=== PATIENT | male | born 1985 | race Caucasian/White ===

== ENCOUNTER 2021-03-20 17:42 | Emergency (ER) | payer OTHER | END 2021-03-20 18:59 | disposition home or self-care (01) | LOC: JVIRT 17:42 | DX: R51.9 Headache, unspecified (principal); Z20.822 Contact with and (suspected) exposure to COVID-19 | CPT/HCPCS: G2251-GT ==

== ENCOUNTER 2021-12-05 05:28 | Emergency (ER) | payer OTHER ==
[2021-12-05 07:41] VITALS: BP 121/51; PULSE 69; TEMP 98.2; BMI 25.3
[2021-12-05] MEDS ORDERED: IBUPROFEN 600 MG TABLET (FP) PO ONE (08:45)
== END 2021-12-05 09:52 | disposition home or self-care (01) ==
LOC: JER 05:28
DX: M25.521 Pain in right elbow (principal); S51.011A Laceration without foreign body of right elbow, initial encounter; W00.0XXA Fall on same level due to ice and snow, initial encounter
CPT/HCPCS: 71046-TC-FY; 71101-TC-RT-FY; 73070-TC-RT-FY; 99284-25

== ENCOUNTER 2022-02-03 07:21 | Emergency (ER) | payer OTHER ==
[2022-02-03 07:32] VITALS: BP 138/75; PULSE 73; TEMP 98; BMI 25.8
[2022-02-03] MEDS ORDERED: KETOROLAC TROMETHAMINE 30 MG/1 ML VIAL IM ONE (08:07)
[2022-02-03] MEDS ORDERED: KETOROLAC TROMETHAMINE 30 MG/1 ML VIAL ONE (08:20)
== END 2022-02-03 08:26 | disposition home or self-care (01) ==
LOC: JERFT 07:21 → JER 07:21 → JERFT 08:26
PROC: 3E023GC Introduction of Other Therapeutic Substance into Muscle, Percutaneous Approach (ICD-10-PCS; principal; 2022-02-03)
DX: M54.50 Low back pain, unspecified (principal)
CPT/HCPCS: 99284-25

== ENCOUNTER 2022-02-09 09:24 | Emergency (ER) | payer OTHER ==
[2022-02-09 09:41] VITALS: BP 135/76; PULSE 87; TEMP 98; BMI 27.3
[2022-02-09] MEDS ORDERED: ACETAMINOPHEN 500 MG TABLET (FP) PO ONE (10:41)
[2022-02-09] MEDS ORDERED: ACETAMINOPHEN 500 MG TABLET (FP) ONE (10:53)
[2022-02-09] MEDS ORDERED: KETOROLAC TROMETHAMINE 30 MG/1 ML VIAL IM ONE (11:57)
[2022-02-09] MEDS ORDERED: KETOROLAC TROMETHAMINE 30 MG/1 ML VIAL ONE (12:00)
== END 2022-02-09 13:04 | disposition home or self-care (01) ==
LOC: JERFT 09:24
PROC: 3E0233Z Introduction of Anti-inflammatory into Muscle, Percutaneous Approach (ICD-10-PCS; principal; 2022-02-09)
DX: M54.50 Low back pain, unspecified (principal)
CPT/HCPCS: 72131-TC; 99284-25

== ENCOUNTER 2023-07-04 11:53 | Emergency (ER) | payer OTHER ==
[2023-07-04 12:05] VITALS: BP 125/70; PULSE 66; RESP 19; TEMP 98.2; BMI 25.5
[2023-07-04] MEDS ORDERED: KETOROLAC TROMETHAMINE 30 MG/1 ML VIAL IM ONE (12:55)
[2023-07-04] MEDS ORDERED: CYCLOBENZAPRINE HCL 10 MG TABLET (FP) PO ONE (12:55)
[2023-07-04] MEDS ORDERED: CYCLOBENZAPRINE HCL 10 MG TABLET (FP) ONE (13:07)
[2023-07-04] MEDS ORDERED: KETOROLAC TROMETHAMINE 15 MG/ML VIAL ONE (13:07)
== END 2023-07-04 18:02 | disposition home or self-care (01) ==
LOC: JERFT 11:53
PROC: 3E0233Z Introduction of Anti-inflammatory into Muscle, Percutaneous Approach (ICD-10-PCS; principal; 2023-07-04)
DX: R10.12 Left upper quadrant pain (principal); R07.81 Pleurodynia; X50.0XXA Overexertion from strenuous movement or load, initial encounter; X50.1XXA Overexertion from prolonged static or awkward postures, initial encounter
CPT/HCPCS: 76700-TC; 99284-25

== ENCOUNTER 2023-07-07 12:48 | Emergency (ER) | payer OTHER ==
[2023-07-07 13:04] VITALS: BMI 25.8
[2023-07-07] MEDS ORDERED: KETOROLAC TROMETHAMINE 30 MG/1 ML VIAL IM ONE (13:38)
[2023-07-07] MEDS ORDERED: KETOROLAC TROMETHAMINE 15 MG/ML VIAL ONE (13:51)
[2023-07-07 14:19] LABS: BASO % 0.4 % (0-2.0); EOS % 4.2 % (0-4.5); HEMATOCRIT 46.8 % (35.4-49); HEMOGLOBIN 16.1 GM/dL (11.7-16.9); MCH 29.9 pg (25.7-33.7); MCHC 34.4 g/dl (32.0-35.9); MONO % 9.3 % (3.8-10.2); NEUT % 56.1 % (42.8-82.8); PLATELET COUNT 162 10^3/uL (134-434); RBC 5.38 M/mm3 (4.00-5.60); RDW 14.3 % (11.9-15.9); WHITE BLOOD COUNT 8.1 K/mm3 (4.0-10.0)
[2023-07-07 15:04] LABS: POTASSIUM 4.6 mmol/L (3.5-5.1)
[2023-07-07 15:06] LABS: CALCIUM 8.9 mg/dL (8.5-10.1)
[2023-07-07 15:07] LABS: ALBUMIN 3.9 g/dl (3.4-5.0); BLOOD UREA NITROGEN 22.7 mg/dL (7-18)
[2023-07-07 15:09] LABS: CREATININE 1.4 mg/dL (0.55-1.3)
[2023-07-07 15:11] LABS: BILIRUBIN,TOTAL 0.3 mg/dL (0.2-1); TOT PROT 7.6 g/dl (6.4-8.2)
[2023-07-07] MEDS ORDERED: SODIUM CHLORIDE 0.9% 500 ML INFUS.BAG IV ONE ×2 (16:09→18:43)
[2023-07-07 16:38] LABS: URINE COLOR YELLOW
[2023-07-07 16:39] LABS: PH,URINE 6.5 (5.0-8.0); URINE APPEARANCE CLEAR; URINE BILIRUBIN NEGATIVE (NEGATIVE); URINE GLUCOSE (UA) NEGATIVE (NEGATIVE); URINE KETONE NEGATIVE (NEGATIVE); URINE LEUK ESTERASE NEGATIVE (NEGATIVE); URINE NITRITE NEGATIVE (NEGATIVE); URINE PROTEIN NEGATIVE (NEGATIVE)
[2023-07-07 18:05] LABS: POTASSIUM 5.4 mmol/L (3.5-5.1)
[2023-07-07 18:07] LABS: ALBUMIN 3.8 g/dl (3.4-5.0); BLOOD UREA NITROGEN 21.8 mg/dL (7-18); CALCIUM 8.8 mg/dL (8.5-10.1)
[2023-07-07 18:10] LABS: CREATININE 1.4 mg/dL (0.55-1.3)
[2023-07-07 18:12] LABS: BILIRUBIN,TOTAL 0.3 mg/dL (0.2-1); TOT PROT 6.8 g/dl (6.4-8.2)
[2023-07-07] MEDS ORDERED: ACETAMINOPHEN 500 MG TABLET (FP) PO ONE (20:18)
[2023-07-07] MEDS ORDERED: LIDOCAINE 5% TOPICAL PATCH TP ONE (20:19)
[2023-07-07] MEDS ORDERED: LIDOCAINE 5% TOPICAL PATCH ONE (20:34)
[2023-07-07] MEDS ORDERED: ACETAMINOPHEN 500 MG TABLET (FP) ONE (20:34)
[2023-07-07 21:12] LABS: POTASSIUM 4.6 mmol/L (3.5-5.1)
[2023-07-07 21:14] LABS: BLOOD UREA NITROGEN 21.7 mg/dL (7-18); CALCIUM 8.3 mg/dL (8.5-10.1)
[2023-07-07 21:18] LABS: CREATININE 1.3 mg/dL (0.55-1.3)
[2023-07-07 21:31] VITALS: BP 110/68; PULSE 62; RESP 19; TEMP 97.9
[2023-07-07] MEDS ORDERED: LIDOCAINE PATCH REMOVAL MC SCH (22:00)
== END 2023-07-07 21:31 | disposition home or self-care (01) ==
LOC: JER 12:48
PROC: 3E0233Z Introduction of Anti-inflammatory into Muscle, Percutaneous Approach (ICD-10-PCS; principal; 2023-07-07)
DX: R10.12 Left upper quadrant pain (principal); R25.2 Cramp and spasm; S29.011A Strain of muscle and tendon of front wall of thorax, initial encounter; X50.0XXA Overexertion from strenuous movement or load, initial encounter
CPT/HCPCS: 36415; 71046-TC-FY; 71101-TC-LT-FY; 74177-TC; 80048; 80053; 81003; 85025; 93005; 93010; 99285-25; Q9967

== ENCOUNTER 2024-01-05 23:47 | Emergency (ER) | payer OTHER ==
[2024-01-05 23:53] VITALS: BP 135/73; PULSE 92; RESP 20; TEMP 97.5; BMI 27.3
[2024-01-06] MEDS ORDERED: LIDOCAINE HCL 1%, 10 MG/ML (20ML VIAL) ONE (00:39)
[2024-01-06] MEDS ORDERED: cefTRIAXone SODIUM 1 GM VIAL ONE (00:40)
[2024-01-06 01:19] LABS: PH,URINE 5.5 (5.0-8.0); URINE APPEARANCE CLEAR; URINE BILIRUBIN NEGATIVE (NEGATIVE); URINE COLOR YELLOW; URINE GLUCOSE (UA) NEGATIVE (NEGATIVE); URINE KETONE TRACE (NEGATIVE); URINE LEUK ESTERASE NEGATIVE (NEGATIVE); URINE NITRITE NEGATIVE (NEGATIVE); URINE PROTEIN NEGATIVE (NEGATIVE)
== END 2024-01-06 01:40 | disposition home or self-care (01) ==
LOC: JER 23:47
DX: R36.9 Urethral discharge, unspecified (principal)
CPT/HCPCS: 36415; 81003; 87086; 87491; 87591; 99284-25

== ENCOUNTER 2024-06-01 19:54 | Emergency (ER) | payer OTHER ==
[2024-06-01 20:05] VITALS: BP 135/79; PULSE 91; RESP 18; TEMP 98.2; BMI 28.6
[2024-06-01 22:10] LABS: BASO % 0.5 % (0-2.0); EOS % 3.1 % (0-4.5); HEMATOCRIT 47.2 % (35.4-49); HEMOGLOBIN 16.2 GM/dL (11.7-16.9); LYMPH % 25.2 % (8-40); MCH 30.2 pg (25.7-33.7); MCHC 34.4 g/dl (32.0-35.9); MEAN CELL VOLUME 87.9 fl (80-96); MEAN PLT VOLUME 9.8 fl (7.5-11.1); MONO % 9.8 % (3.8-10.2); NEUT % 61.4 % (42.8-82.8); PLATELET COUNT 173 10^3/uL (134-434); RBC 5.37 M/mm3 (4.00-5.60); RDW 14.4 % (11.9-15.9); WHITE BLOOD COUNT 9.2 K/mm3 (4.0-10.0)
[2024-06-01 22:32] LABS: POTASSIUM 4.3 mmol/L (3.5-5.1)
[2024-06-01 22:34] LABS: CALCIUM 9.2 mg/dL (8.5-10.1)
[2024-06-01 22:38] LABS: CREATININE 1.3 mg/dL (0.55-1.3)
[2024-06-01 22:39] LABS: TOT PROT 7.4 g/dl (6.4-8.2)
[2024-06-01 22:40] LABS: BILIRUBIN,TOTAL 0.4 mg/dL (0.2-1)
[2024-06-02] MEDS ORDERED: diphenhydrAMINE HCL 25 MG CAPSULE (FP) PO ONE (01:12)
[2024-06-02] MEDS: diphenhydrAMINE HCL 25 MG CAPSULE (FP) PO ONE (01:25)
[2024-06-02] MEDS ORDERED: DEXAMETHASONE SOD PHOSPHATE 10 MG/1 ML VIAL ONE (01:25)
[2024-06-02] MEDS: DEXAMETHASONE SOD PHOSPHATE 10 MG/1 ML VIAL IVPUSH ONE (01:36)
[2024-06-02] MEDS ORDERED: DALBAVANCIN HCL 500 MG VIAL (RESTRICTED TO ID ONLY) IVPB ONE (02:16)
[2024-06-02] MEDS: DALBAVANCIN HCL 1,500 MG in DEXTROSE 5%-WATER - 500 ML IVPB ONE (02:29)
== END 2024-06-02 06:05 | disposition home or self-care (01) ==
LOC: JER 19:54 → JERFT 19:54 → JER 06-02 06:05
PROC: 0X960ZZ Drainage of Right Upper Extremity, Open Approach (ICD-10-PCS; principal; 2024-06-01)
PROC: 3E03329 Introduction of Other Anti-infective into Peripheral Vein, Percutaneous Approach (ICD-10-PCS; 2024-06-02)
PROC: 3E033GC Introduction of Other Therapeutic Substance into Peripheral Vein, Percutaneous Approach (ICD-10-PCS; 2024-06-02)
DX: L02.413 Cutaneous abscess of right upper limb (principal)
CPT/HCPCS: 36415; 73201-TC-RT; 76882-TC-RT-FY; 80053; 85025; 87070; 87076; 87205; 99284-25; J0875; J1100; Q9967

== ENCOUNTER 2024-06-04 11:30 | Emergency (ER) | payer OTHER ==
[2024-06-04 11:45] VITALS: PULSE 85; RESP 18; TEMP 98; BMI 28.6
[2024-06-04 12:14] VITALS: BP 104/77
== END 2024-06-04 12:20 | disposition home or self-care (01) ==
LOC: JERFT 11:30 → JER 11:30 → JERFT 12:20
DX: Z48.01 Encounter for change or removal of surgical wound dressing (principal); L02.413 Cutaneous abscess of right upper limb
CPT/HCPCS: 99281-25

== ENCOUNTER 2024-07-03 04:17 | Day surgery (SDC) | payer OTHER ==
[2024-07-02 09:12] VITALS: BMI 28.3
[2024-07-03 08:43] VITALS: BP 124/68; PULSE 79; RESP 18; TEMP 98.7
[2024-07-03] MEDS ORDERED: MIDAZOLAM HCL 2 MG/2 ML SINGLE DOSE VIAL ONE (12:10)
== END 2024-07-03 12:45 | disposition home or self-care (01) ==
LOC: JASU-SURG 04:17
PROVIDERS: ATTEND Surgery
DX: Z53.8 Procedure and treatment not carried out for other reasons (principal)
CPT/HCPCS: 86850; 86900; 86901